=== PATIENT | female | born 1945 | race African-American/Black ===

== ENCOUNTER 2018-12-26 21:56 | Inpatient (IN) | payer MEDICARE, MEDICAID ==
[~2018-12-26] VITALS: Ht 154.9 cm; Wt 85.7 kg
[2018-12-26] MEDS ORDERED: SODIUM CHLORIDE 0.9% 1000ML BAG (SEPSIS BOLUS) IV ONE (22:45)
[2018-12-27 01:01] LABS: BASOPHILS % 0.2 % (0.0-2.0); EOSINOPHILS % 0.2 % (0.0-5.0); HEMATOCRIT. 40.4 % (36.0-48.0); HEMOGLOBIN. 13.6 g/dL (12.0-16.0); LYMPHOCYTES % 26.1 % (20.0-50.0); MEAN CORPUSCULAR HEMOGLOBIN 30.7 pg (28.0-32.0); MEAN CORPUSCULAR VOLUME 91.1 fL (81.0-99.0); MONOCYTES % 10.3 % (2.0-8.0); NEUTROPHILS % 63.2 % (40.0-76.0); PLATELET 94 x1000/uL (130-400); RED BLOOD CELL COUNT 4.44 mill/uL (4.2-5.4); RED CELL DISTRIBUTION WIDTH 14.6 % (11.6-14.6)
[2018-12-27 01:09] LABS: CHLORIDE 98 mEq/L (98-107)
[2018-12-27 01:10] LABS: PROTHROMBIN TIME 10.7 sec (9.6-11.0)
[2018-12-27 01:17] LABS: CLARITY URINE CLEAR (CLEAR); COLOR URINE YELLOW (YELLOW); KETONES URINE NEGATIVE (NEGATIVE); LEUKOCYTE ESTERASE URINE NEGATIVE (NEGATIVE); NITRITE URINE NEGATIVE (NEGATIVE); OCCULT BLOOD URINE NEGATIVE (NEGATIVE); PROTEIN URINE NEGATIVE (NEGATIVE); SPECIFIC GRAVITY URINE 1.031 (1.005-1.030); UROBILINOGEN URINE 0.2 E.U./dL (0.2-1.0)
[2018-12-27] MEDS ORDERED: INSULIN REGULAR (HUMULIN R) 300UNITS/3ML SUBCUT ONE (02:00)
[2018-12-27 09:42] VITALS: BP 147/70
[2018-12-27 09:43] VITALS: BP 147/70
[2018-12-27] MEDS ORDERED: LINA145C PO (10:19)
[2018-12-27] MEDS ORDERED: POLY17PO3 PO (10:19)
[2018-12-27] MEDS ORDERED: BRIM5DRO EACHEYE (10:19)
[2018-12-27] MEDS ORDERED: IBUP-2437 MT (10:19)
[2018-12-27] MEDS ORDERED: TIMO10DR30 EACHEYE (10:19)
[2018-12-27] MEDS ORDERED: CALC-30 PO (10:19)
[2018-12-27] MEDS ORDERED: SITA100T11 PO (10:19)
[2018-12-27] MEDS ORDERED: AMLO5TAB4 PO (10:19)
[2018-12-27] MEDS ORDERED: AMYL1CAP59 PO (10:19)
[2018-12-27] MEDS ORDERED: TOCI162S SQ (10:19)
[2018-12-27] MEDS ORDERED: AZOPT EACHEYE (10:19)
[2018-12-27] MEDS ORDERED: OMEP20TA2 PO (10:19)
[2018-12-27] MEDS ORDERED: LOSA1TAB40 PO (10:19)
[2018-12-27 12:00] VITALS: BP 115/18
[2018-12-27] MEDS ORDERED: LORAZEPAM 2MG/ML CPJ IM PRN (12:15)
[2018-12-27] MEDS ORDERED: CLONIDINE 0.1MG TABLET PO PRN ×2 (12:15→18:15)
[2018-12-27] MEDS ORDERED: ONDANSETRON HCL 4MG/2ML INJ IV PRN (12:15)
[2018-12-27] MEDS: SODIUM CHLORIDE 0.9% 1,000 ML IV SCH (15:05)
[2018-12-27] MEDS: OMEPRAZOLE 20MG CAPSULE EXTENDED RELEASE PO SCH (15:05)
[2018-12-27] MEDS: AMLODIPINE 5MG TABLET PO SCH (15:05)
[2018-12-27 16:00] VITALS: BP 115/68
[2018-12-27] MEDS: TIMOLOL MALEATE 0.5% OPHTH DROPS 5ML EACHEYE SCH (17:43)
[2018-12-27] MEDS ORDERED: LORAZEPAM 2MG/ML CPJ IV PRN (18:15)
[2018-12-27 20:00] VITALS: BP 100/65
[2018-12-27] MEDS ORDERED: DEXTROSE 50% WATER 50ML SYRINGE IV PRN (21:00)
[2018-12-27] MEDS: BRIMONIDINE 0.2% OPHTH DROPS 5ML EACHEYE SCH (21:51)
[2018-12-27] MEDS: BLOOD SUGAR DIAGNOSTIC STRIP TEST SCH (21:51)
[2018-12-27] MEDS: INSULIN LISPRO 100 UNITS/ML SUBCUT SCH (22:45)
[2018-12-28] VITALS: BP 97/64
[2018-12-28 04:00] VITALS: BP 110/59
[2018-12-28] MEDS: SODIUM CHLORIDE 0.9% 1,000 ML IV SCH ×2 (04:54→18:28)
[2018-12-28] MEDS: OMEPRAZOLE 20MG CAPSULE EXTENDED RELEASE PO SCH (06:45)
[2018-12-28] MEDS: BLOOD SUGAR DIAGNOSTIC STRIP TEST SCH ×4 (06:45→21:19)
[2018-12-28 07:09] LABS: CHLORIDE 108 mEq/L (98-107)
[2018-12-28 07:21] LABS: BASOPHILS % 0.3 % (0.0-2.0); EOSINOPHILS % 0.4 % (0.0-5.0); HEMATOCRIT. 37.3 % (36.0-48.0); HEMOGLOBIN. 12.7 g/dL (12.0-16.0); LYMPHOCYTES % 32.6 % (20.0-50.0); MEAN CORPUSCULAR HEMOGLOBIN 30.7 pg (28.0-32.0); MEAN CORPUSCULAR VOLUME 90.1 fL (81.0-99.0); MEAN PLATELET VOLUME 8.7 fl (7.4-10.4); MONOCYTES % 7.9 % (2.0-8.0); NEUTROPHILS % 58.8 % (40.0-76.0); PLATELET 81 x1000/uL (130-400); RED BLOOD CELL COUNT 4.14 mill/uL (4.2-5.4); RED CELL DISTRIBUTION WIDTH 14.4 % (11.6-14.6)
[2018-12-28 08:00] VITALS: BP 114/73
[2018-12-28] MEDS: AMLODIPINE 5MG TABLET PO SCH (08:14)
[2018-12-28] MEDS: TIMOLOL MALEATE 0.5% OPHTH DROPS 5ML EACHEYE SCH ×2 (08:15→21:21)
[2018-12-28] MEDS: BRIMONIDINE 0.2% OPHTH DROPS 5ML EACHEYE SCH ×2 (08:15→21:21)
[2018-12-28] MEDS: INSULIN LISPRO 100 UNITS/ML SUBCUT SCH ×4 (08:31→21:32)
[2018-12-28] MEDS ORDERED: POTASSIUM CHLORIDE 20MEQ TABLET SR PO NR (09:30)
[2018-12-28 11:57] LABS: T4 FREE 1.18 ng/dL (0.76-1.46)
[2018-12-28 12:00] VITALS: BP 118/76
[2018-12-28 12:27] LABS: VITAMIN B12 SERUM 930 pg/mL (211-911)
[2018-12-28 12:28] LABS: FOLIC ACID (FOLATE) SERUM > 20.00 ng/mL (>5.38)
[2018-12-28 16:00] VITALS: BP 120/73
[2018-12-28 19:44] VITALS: BP 107/62
[2018-12-29 04:00] VITALS: BP 116/10
[2018-12-29] MEDS: OMEPRAZOLE 20MG CAPSULE EXTENDED RELEASE PO SCH (06:42)
[2018-12-29] MEDS: BLOOD SUGAR DIAGNOSTIC STRIP TEST SCH ×2 (06:42→12:29)
[2018-12-29] MEDS: SODIUM CHLORIDE 0.9% 1,000 ML IV SCH (06:43)
[2018-12-29 08:00] VITALS: BP 124/75
[2018-12-29 08:54] VITALS: BP 116/10
[2018-12-29] MEDS: INSULIN LISPRO 100 UNITS/ML SUBCUT SCH ×2 (09:00→13:17)
[2018-12-29] MEDS: AMLODIPINE 5MG TABLET PO SCH (09:03)
[2018-12-29] MEDS: TIMOLOL MALEATE 0.5% OPHTH DROPS 5ML EACHEYE SCH (09:03)
[2018-12-29] MEDS: BRIMONIDINE 0.2% OPHTH DROPS 5ML EACHEYE SCH (09:03)
[2018-12-29 11:01] LABS: CHLORIDE 108 mEq/L (98-107)
[2018-12-29 12:00] VITALS: BP 115/79
[2018-12-29] MEDS ORDERED: POTASSIUM CHLORIDE 20MEQ TABLET SR PO NR (12:30)
[2018-12-29 14:08] VITALS: BP 115/79
== END 2018-12-29 15:10 | disposition home or self-care (01) | DRG 69 ==
LOC: ER 21:56 → EDBEDREQTM 12-27 01:37 → EDBEDREQSVC 12-27 01:37 → EDBEDREQDT 12-27 01:37 → EDBEDREQ 12-27 01:37 → 6WST 12-27 05:07 → ENRESERV 12-27 07:42
PROVIDERS: ADMIT Hospitalist; ATTEND Hospitalist
DX: G45.9 Transient cerebral ischemic attack, unspecified (principal); G93.40 Encephalopathy, unspecified; E87.1 Hypo-osmolality and hyponatremia; T38.0X5A Adverse effect of glucocorticoids and synthetic analogues, initial encounter; E11.65 Type 2 diabetes mellitus with hyperglycemia; M31.6 Other giant cell arteritis; D89.89 Other specified disorders involving the immune mechanism, not elsewhere classified; I95.9 Hypotension, unspecified; I10 Essential (primary) hypertension; R20.0 Anesthesia of skin; R26.9 Unspecified abnormalities of gait and mobility; Y92.89 Other specified places as the place of occurrence of the external cause; Z79.899 Other long term (current) drug therapy
CPT/HCPCS: 36415; 70551; 71045; 80048; 81003; 82140; 82607; 82746; 82962; 83036; 83605; 83880; 84145; 84439; 84443; 84481; 84484; 87804; 93005; 97162; 99285; J1815; J7030